=== PATIENT | male | born 1935 | race Caucasian/White ===

== ENCOUNTER 2016-07-13 07:44 | Inpatient (IN) | payer OTHER ==
[~2016-07-13] VITALS: Ht 177.8 cm; Wt 60.6 kg
[2016-07-13] VITALS (41 sets, daily range): BP systolic 50–145; BP diastolic 25–76
--- NOTE | ~2016-07-13 | CON ---
[place], [place] REPORT OF CONSULTATION NAME: TRISTEN WASHBURN UNIT #: [id number] ROOM: [place] [address] DOCTOR: QUINCY CUEVAS MD BIRTHDATE: [birth year] DOS: 07/13/2016 CARDIOLOGY CONSULTATION REASON FOR CONSULTATION: Elevated cardiac enzymes. HISTORY OF PRESENT ILLNESS: This patient is an 80-year-old gentleman was evidently presented for evaluation of his fever. [facility] a [facility] and brought to the Emergency Room for his fever of 101 then this morning his temperature was 103.1 in the Emergency Room. He did have some nausea and decreased appetite on day before admission. He is admitted to the hospital and due to his slightly elevated cardiac enzymes Cardiology was consulted. Most of the history was obtained from the chart and the Emergency Room record due to patient's mental status, but he denies any chest pain or shortness of breath, no palpitations, no dizziness, and no syncope. He denies any headache or blurred vision, no hematuria, dysuria, no constipation. REVIEW OF SYSTEMS: Review of the 8 systems negative except as described in the history of present complaint. PAST MEDICAL HISTORY: 1. History of diastolic heart failure. 2. Short gut syndrome. 3. Anemia. 4. Peptic ulcer disease. 5. B12 deficiency. 6. Fracture of L1 vertebra. 7. Ulcerative colitis. PAST SURGICAL HISTORY: 1. History of ileostomy, history of knee surgery. 2. MediPort placement. SOCIAL HISTORY: The patient does not smoke or drink. No illicit drug abuse. Currently lives at [facility]. FAMILY HISTORY: Noncontributory. Father at the age of 104. Mother at the age of 94. ALLERGIES: THE PATIENT IS ALLERGIC TO LEVAQUIN AND AVELOX. CURRENT MEDICATIONS: Reviewed. PHYSICAL EXAMINATION: VITAL SIGNS: At the time of examination, the blood pressure was 108/55, pulse 77, respiratory rate 18. GENERAL: Alert, comfortable, in no acute distress, appears to be tired. HEENT: Pupils are round and equal. No jaundice. Tongue was moist and pharynx [place], [place] REPORT OF CONSULTATION NAME: TRISTEN WASHBURN UNIT #: [id number] ROOM: [place] [address] DOCTOR: QUINCY CUEVAS MD BIRTHDATE: [birth year] was clear. NECK: Supple, no distended neck veins, no carotid bruit. CHEST: Chest wall symmetrical. LUNGS: Clear to auscultation bilaterally, slightly diminished at bases. HEART: Regular rhythm, no S3, grade 1/6 systolic murmur. ABDOMEN: Bowel sounds normal, nontender. EXTREMITIES: Showed trace edema. SKIN: Warmer and no cyanosis, no clubbing. Distal pulses palpable. NEUROLOGIC: The patient is alert, oriented. No focal neurologic deficit. RECTAL: Deferred. GENITOURINARY: Deferred. REVIEW OF THE DIAGNOSTIC TESTS: EKG shows sinus rhythm, sinus tachycardia with ventricular ectopy, IVCD. LABORATORY DATA: His labs reviewed. CPK was 25. CK-MB 0.9. Troponin 0.019, the next troponin was 0.054. Hemoglobin 9.9 and platelets 120,000. Creatinine 3.0. IMPRESSION: 1. Hypotensive shock. 2. Borderline elevation of troponin. 3. Acute renal failure. 4. Possible sepsis. 5. Anemia. 6. Thrombocytopenia. RECOMMENDATIONS: 1. Continue fluids and inotropic support. 2. Weaning gradually the inotropic support and once the blood pressure stable resume low-dose beta blockers and continue his aspirin. 3. Check 2D echo for LV function and valvular function. 4. His borderline elevation of troponin due to his hypotension and renal failure. 5. Due to his multiple comorbid conditions, I would recommend just conservative medical therapy. 6. There is no family at bedside at the time of my examination. 7. Overall prognosis was poor. [place], [place] REPORT OF CONSULTATION NAME: TRISTEN WASHBURN UNIT #: [id number] ROOM: [place] [address] DOCTOR: QUINCY CUEVAS MD BIRTHDATE: [birth year] QUINCY CUEVAS MD CM:CONSTR:REPORT OF CONSULTATION 0814 07/14/16 1047 interface
--- NOTE | ~2016-07-13 | PR ---
[place], [place] PROGRESS NOTE NAME: TRISTEN WASHBURN UNIT #: [id number] ROOM: [place] [address] DOCTOR: MASON LO,DONNYCONCHITA BIRTHDATE: [birth year] DOS: 07/14/2016 CARDIOLOGY FOLLOWUP VISIT NOTE REASON FOR VISIT: Elevated cardiac enzymes and low blood pressure. SUBJECTIVE: The patient is more alert today. Denies any chest pain, somewhat confused. His is at bedside. Denies any chest pain or shortness of breath. No fever. No orthopnea. Today, he had a stent put in for obstruction. REVIEW OF SYSTEMS: Review of the 8 systems negative except as mentioned above. PHYSICAL EXAMINATION: VITAL SIGNS: Blood pressure 115/61, pulse 60, 20. GENERAL: Alert, comfortable, in no acute distress. HEAD AND NECK: Pupils are round and equal. No jaundice. Tongue was moist and pharynx was clear. NECK: Supple. No distended neck veins. No carotid bruit. CHEST: Nontender, symmetrical. LUNGS: Fair air entry, few scattered rhonchi. HEART: Regular rhythm, no S3. Grade 1/6 systolic murmur. ABDOMEN: Bowel sounds normal. EXTREMITIES: Showed trace edema. SKIN: Warm and dry. No cyanosis, no clubbing. REVIEW OF THE DIAGNOSTIC TESTS: His labs and rhythm strips reviewed. His hemoglobin 9.4, creatinine 2.88, magnesium 1.4. CPK 280, MB 7.5. Troponin 0.125 IMPRESSION: 1. Ied-PU-dkloimo-elevation myocardial infarction, due to secondary ischemia and type 2 pxx-WQ-tscjwyr-elevation myocardial infarction. 2. Hypotensive shock, resolved. 3. Anemia. 4. Acute renal failure. 5. Gallstones. 6. Hypomagnesemia. RECOMMENDATIONS: 1. The blood pressure and heart rate are stable. He denies any chest pain. 2. Conservative medical therapy due to his multiple comorbidities. 3. Start aspirin 81 mg once daily and low-dose beta blockers as his blood pressure tolerates. 4. His magnesium is being replaced today. 5. Discussed with his and all questions were answered. [place], [place] PROGRESS NOTE NAME: TRISTEN WASHBURN UNIT #: [id number] ROOM: [place] [address] DOCTOR: QUINCY CUEVAS MD BIRTHDATE: [birth year] QUINCY CUEVAS MD CM:JAILYN [id number] QUINCY CUEVAS MD 07/15/16 0523 interface
--- NOTE | ~2016-07-13 | O ---
[place], [place] OPERATIVE NOTE [id number] UNIT #: [id number] ROOM: [place] [address] DOCTOR: AJIT CUMMINGS MD BIRTHDATE: [birth year] DOS: PREOPERATIVE DIAGNOSES: Urosepsis with left mid ureteral calculus with obstructive uropathy. Normal right collecting system with no evidence of ureteral obstruction. PROCEDURE: Cystoscopy, bilateral retrograde pyelogram, placement of the left ureteral stent. DESCRIPTION OF PROCEDURE: After obtaining satisfactory general anesthesia, the patient was placed in lithotomy position. Genitals prepped and draped in sterile manner. A 21 ACMI scope was placed in the bladder. Left orifice was then identified, the contrast injected, which showed a complete obstruction at the level of the mid ureter. However, I was able to pass the size 0.35 guidewire, which was negotiated past the obstruction into upper collecting system. I then placed a size 26-[place] ureteral stent over the guidewire. The guidewire was removed. Stent was seen very well pigtailing in the bladder and in the kidney. The right retrograde pyelogram was then performed in the usual fashion. There was no obstruction noted. The patient tolerated the procedure very well. He was then recovered from anesthesia and transferred to recovery room in satisfactory condition. AJIT CUMMINGS MD CM:OPRECORD:OPERATIVE NOTE [id number] RODNEY ANN MD 07/14/16 0915 interface
--- NOTE | ~2016-07-13 | CON ---
[place], [place] REPORT OF CONSULTATION [id number] UNIT #: [id number] ROOM: [place] [address] DOCTOR: AJIT CUMMINGS MD BIRTHDATE: [birth year] DOS: 07/13/2016 HISTORY OF PRESENT ILLNESS: The patient is an 80-year-old gentleman admitted under Dr. Dobbs's service, seen at her request. The patient was admitted this morning with a high fever, hypotension, nausea and vomiting and admitted to the ICU, the patient has been on with IV fluids and on the Levophed drip to maintain his blood pressure. CT scan was obtained, which showed multiple bilateral renal as well as left obstructing ureteral calculus with hydronephrosis. PAST MEDICAL HISTORY: Most recently about a month ago, the patient was at [facility] with left flank pain, left abdominal pain, and had left ureteral stent placement. Apparently, the patient had the procedure for the left ureteral calculus and then the stent was removed about 2 weeks ago according to the patient. PHYSICAL EXAMINATION: GENERAL: The patient is very well, alert, well orientated, not in any distress; however, states that he has got a left lower back pain, which gets relieved by change of position. ABDOMEN: Soft, nontender. He has some tenderness in the left midline in the lower back, but there does not appear to be any tenderness in the left flank. He has a left colostomy. GENITOURINARY: Genitals normal with a Bhagat catheter at present. Digital examination deferred at this time. LABORATORY DATA: The CT scan reviewed that shows multiple small nonobstructing calculi bilaterally in both kidneys with a bilateral hydronephrosis, more prominent on the left with a left hydroureter, with a stone size approximately 1 cm in greatest diameter at about L3-L4 level. He also has a right hydronephrosis, but I cannot appreciate the stone if there is any in the left distal or mid ureter. There is no ureteral stranding or there is no perinephric stranding suggestive of an acute obstruction. I also reviewed his renal ultrasound, which was performed in 03/2016 that shows there was a single large stone in the left renal pelvis with a very minimal hydronephrosis. Apparently, the same stone which has been present and now it has dropped in the mid ureteral area. ASSESSMENT: Left ureter with ureteral obstruction and a possible urosepsis. PLAN: Since the patient is stable at this time hemodynamically, although on a Levophed, I will take the patient to [facility] first thing in the morning tomorrow to place the ureteral calculus; however, if the patient takes any turn for the worst, we will put the stent in tonight. I discussed the case with the patient's as well as Dr. Dobbs's and has gotten the consent for the procedure, and we will place the ureteral stent in the morning. At the same time, I will also do a right retrograde pyelogram and if it shows ureteral obstruction, I will place stent in the right ureter as well. [place], [place] REPORT OF CONSULTATION NAME: TRISTEN WASHBURN [place] UNIT #: [id number] ROOM: [place] [address] DOCTOR: AJIT CUMMINGS MD BIRTHDATE: [birth year] AJIT CUMMINGS MD CM:CONSTR:REPORT OF CONSULTATION 39 07/14/16 0308 interface
--- NOTE | ~2016-07-13 | PR ---
[place], [place] PROGRESS NOTE NAME: TRISTEN WASHBURN UNIT #: [id number] ROOM: [place] [address] DOCTOR: QUINCY CUEVAS MD BIRTHDATE: [birth year] DOS: 07/15/2016 CARDIOLOGY FOLLOWUP NOTE REASON FOR VISIT: NSTEMI and hypertension. HISTORY OF PRESENT ILLNESS: The patient is more alert. Denies any chest pain or shortness of breath. No fever or chills. He denies any dizziness or orthopnea. No edema, no cough, hemoptysis, no nausea, vomiting, diarrhea. No headaches. REVIEW OF SYSTEMS: Eight systems negative except as mentioned above. RHYTHM STRIPS: The patient was in sinus rhythm. PHYSICAL EXAMINATION: VITAL SIGNS: Blood pressure 112/67, pulse 79, respiratory rate 15. GENERAL: Alert, no acute distress. HEENT: Pupils are round and equal. No jaundice. Tongue was moist. NECK: Supple. No distended neck veins. No carotid bruit. CHEST: Nontender. LUNGS: Few scattered rhonchi, diminished at bases. HEART: Regular rhythm, no S3. Grade 1/6 systolic murmur. EXTREMITIES: Showed trace edema. Distal pulses are palpable. ABDOMEN: Bowel sounds normal. ASSESSMENT: 1. Non-ST elevation myocardial infarction due to demand ischemia. The patient is chest pain free. 2. Hypotensive shock, resolved. 3. Acute renal failure. RECOMMENDATIONS: 1. Continue aspirin, beta blockers. 2. Adjust medications based on his blood pressures and heart rates. 3. There is no family at bedside. 4. Cardiology will see as needed. [place], [place] PROGRESS NOTE NAME: TRISTEN WASHBURN UNIT #: [id number] ROOM: [place] [address] DOCTOR: QUINCY CUEVAS MD BIRTHDATE: [birth year] QUINCY CUEVAS MD CM:PNTRANS [id number] QUINCY CUEVAS MD 07/15/16 1704 interface
[~2016-07-13 07:44] MED LIST: ALDACTONE25 M1 PO; AMOXICILLIN500 M2 PO; AQUAPHOR1 OI1 TP; AUGMENTIN 875875 MG PO; B-12500 MC1 PO; BACTRIM DS 8001 TA1 PO; BISAC-EVAC10 MG RC; CALCIUM + D 6001 TA1 PO; CALCIUM 500 +1 EAC3 PO; CENTRUM SILVER1 EACH PO; CHOLESTYRAMINE P4 GM PO; CHOLESTYRAMINE1 PO1; CLEOCIN PH600 MG/50 IV; COLACE100 MG PO; DELTASONE20 M1 PO; DOXYCYCLINE100 M3 PO; DRY EYE OMEGA1 EACH PO; ELITE MAGNESIUM1 TAB PO; FISH OIL500 M1 PO; FLOMAX0.4 MG PO; FLONASE0.05 MG/AC NS; FLUDROCORTISON0.1 MG PO; Ferrex 150150 MG PO; HYDROCODONE BIT1 T11 PO; IRON90 MG PO; KEPPRA XR500 MG PO; KEPPRA500 MG PO; KLOR-CON 1010 ME1 PO; LASIX20 MG PO; LASIX40 MG PO; LINEZOLID-600 MG/300 IV; MAGNESIUM OXID400 MG PO; MAGNESIUM200 MG PO; MAGNESIUM400 M1 PO; MAGNESIUM400 MG PO; MERREM IV500 MG IV; MILK OF MAGNESI1 TAB PO; NATURE'S BLEND F1 MG PO; NORCO 325 MG-51 TAB PO; NYSTATIN100000 U/M PO; OCTREOTIDE 50 MCG/ML SC; OCTREOTIDE SC; OMEPRAZOLE40 MG PO; OXYCODONE AND A1 TA9 PO; Oscal,Oyster S500 MG PO; PANTOPRAZOLE SO40 MG PO; PERCOCET 325 MG1 TA7 PO; PREDNISONE10 MG PO; PREDNISONE5 MG PO; PRESERVISION A1 EAC1 PO; PRESERVISION1 SGL PO; QUESTRAN LIGHT210 GM PO; QUESTRAN LIGHT4 GM PO; SANTYL250 U/GM T; SUPER B-50 COM1 EAC1 PO; TYLENOL W/CODEI1 TA4 PO; TYLENOL WITH CO1 TA1 PO; TYLENOL325 M2 PO; ULORIC40 MG PO; VITAMIN B12-FO1 EACH PO; VITAMIN B1250 MCG PO; VITAMIN D-32000 UNI1 PO; VITAMIN D22000 UNIT PO; VITAMIN D32000 UNIT PO; VITAMIN D50000 I3 PO; Zofran4 MG PO
[2016-07-13 08:04] LABS: HEMATOCRIT 30.5 % (42.0-52.0); HEMOGLOBIN 9.9 g/dl (14.0-18.0); MEAN CELL VOLUME 92.4 fl (80.0-94.0); MEAN CORPUSCULAR HGB CONC 32.5 g/dl (33.0-37.0); MEAN PLATELET VOLUME 10.6 fl (9.6-12.3); PLATELET COUNT AUTOMATED 120 10*3/uL (130-400); RED CELL DISTRI WIDTH 14.9 % (0-14.5); WHITE BLOOD COUNT 8.7 10*3/uL (4.8-10.8)
[2016-07-13 08:12] LABS: INTERNATIONAL NORM RATIO 1.6 (2.0-3.5); PROTHROMBIN TIME 17.1 SECONDS (9.0-12.4)
[2016-07-13 08:22] LABS: ALBUMIN 2.9 gm/dl (3.1-4.5); BILIRUBIN, TOTAL 0.9 mg/dl (0.2-1.0); CKMB 0.9 ng/ml (0.5-3.6); MAGNESIUM 1.5 mg/dL (1.5-2.1); POTASSIUM 4.2 mmol/L (3.5-5.1); TOTAL PROTEIN 5.5 gm/dL (6.4-8.2); TROPONIN I 0.019 ng/ml (<0.045)
[2016-07-13 08:24] LABS: ACANTHOCYTES MODERATE; LYMPHOCYTE # 0.2 10*3/uL (1.3-4.4); NEUTROPHIL # 8.5 10*3/uL (2.3-7.9); NEUTROPHILS 98 % (47-73); PLATELET SUFFICIENCY LOW (NORMAL); SCHISTOCYTES FEW; TOTAL CELLS COUNTED 100 #CELLS
[2016-07-13 10:01] LABS: LA>2 REFLEX 2 HR DRAW NOW
[2016-07-13 10:16] LABS: LA>2 RFLX FOLLOW UP AT 2 HRS 2.8 mmol/L (0.4-2.0)
[2016-07-13 11:20] LABS: BILIRUBIN NEGATIVE (NEGATIVE); BLOOD 2+ (NEGATIVE); CLARITY SL CLOUDY (CLEAR); COLOR YELLOW (YELLOW); GLUCOSE NEGATIVE (NEGATIVE); KETONE NEGATIVE (NEGATIVE); LEUKO ESTERASE 1+ (NEGATIVE); NITRITE NEGATIVE (NEGATIVE); PROTEIN NEGATIVE (NEGATIVE); UROBILINOGEN 0.2 E.U./dl (0.2-1.0)
[2016-07-13 11:30] LABS: BACTERIA TRACE
[2016-07-13 11:31] LABS: URINE REFLEX COMMENT YES (NO)
[2016-07-13 12:09] LABS: LA>2 REFLEX 4 HR DRAW NOW
[2016-07-13 12:12] LABS: CKMB 1.1 ng/ml (0.5-3.6)
[2016-07-13 12:20] LABS: TROPONIN I 0.054 ng/ml (<0.045)
[2016-07-13] MEDS ORDERED: VISTARIL25 M2 PO (13:30)
[2016-07-13] MEDS ORDERED: PYRIDIUM200 M1 PO (13:33)
[2016-07-13] MEDS ORDERED: TRAMADOL HCL50 MG PO (13:34)
[2016-07-13] MEDS ORDERED: ZANTAC 150150 MG PO (13:36)
[2016-07-14] VITALS (84 sets, daily range): BP systolic 70–149; BP diastolic 26–104
[2016-07-14 00:59] LABS: CKMB 7.5 ng/ml (0.5-3.6); TROPONIN I 0.125 ng/ml (<0.045)
[2016-07-14 06:07] LABS: ALBUMIN 2.2 gm/dl (3.1-4.5); BILIRUBIN, TOTAL 0.7 mg/dl (0.2-1.0); MAGNESIUM 1.4 mg/dL (1.5-2.1); PHOSPHOROUS 2.8 mg/dL (2.5-4.9); TOTAL PROTEIN 4.7 gm/dL (6.4-8.2)
[2016-07-14 06:10] LABS: HEMATOCRIT 29.4 % (42.0-52.0); HEMOGLOBIN 9.4 g/dl (14.0-18.0); MEAN CELL VOLUME 94.2 fl (80.0-94.0); MEAN CORPUSCULAR HGB 30.1 pg (27.0-31.0); MEAN PLATELET VOLUME 11.6 fl (9.6-12.3); RED BLOOD COUNT 3.12 10*6/uL (4.50-5.90); RED CELL DISTRI WIDTH 15.1 % (0-14.5); WHITE BLOOD COUNT 22.3 10*3/uL (4.8-10.8)
[2016-07-14 06:28] LABS: PLATELET COUNT AUTOMATED 163 10*3/uL (130-400)
[2016-07-14 06:37] LABS: INTERNATIONAL NORM RATIO 1.6 (2.0-3.5)
[2016-07-14 07:14] LABS: ACANTHOCYTES FEW; LYMPHOCYTE # 1.1 10*3/uL (1.3-4.4); METAMYELOCYTES 1 % (0-0); MONOCYTE # 0.2 10*3/uL (0.1-1.0); NEUTROPHIL # 20.7 10*3/uL (2.3-7.9); NEUTROPHILS 93 % (47-73); PLATELET SUFFICIENCY NORMAL (NORMAL); TOTAL CELLS COUNTED 100 #CELLS
[2016-07-15] VITALS (85 sets, daily range): BP systolic 94–152; BP diastolic 38–88
[2016-07-15 05:59] LABS: MAGNESIUM 1.8 mg/dL (1.5-2.1); PHOSPHOROUS 2.5 mg/dL (2.5-4.9); POTASSIUM 3.4 mmol/L (3.5-5.1)
[2016-07-15] MEDS ORDERED: DUONEB 3 MG/3 ML3 M1 NEB (19:17)
[2016-07-15] MEDS ORDERED: ASPIRIN ADULT L81 M2 PO (19:17)
[2016-07-15] MEDS ORDERED: ENOXAPARIN30 MG/0.2 SC (19:17)
[2016-07-15] MEDS ORDERED: VANCOMYCIN HCL N1 GM IV (19:17)
[2016-07-15] MEDS ORDERED: ACETAMINOPHEN-H1 TA2 PO (19:17)
[2016-07-15] MEDS ORDERED: NOREPINEPHRINE IV (19:17)
[2016-07-15] MEDS ORDERED: AZITHROMYCIN500 M1 IV (19:17)
[2016-07-15] MEDS ORDERED: MERREM IV1 GM IV (19:17)
== END 2016-07-15 21:42 | disposition short-term general hospital (02) | DRG 871 ==
LOC: ED 07:44 → ICCU 10:45 → EDHOLD 10:45 → 4E 10:57 → ICCU 12:27
PROVIDERS: Emergency Medicine; Hospitalist; Internal Medicine Nephrology
PROC: BT141ZZ Fluoroscopy of Kidneys, Ureters and Bladder using Low Osmolar Contrast (ICD-10-PCS; principal; 2016-07-14)
PROC: 0T778DZ Dilation of Left Ureter with Intraluminal Device, Via Natural or Artificial Opening Endoscopic (ICD-10-PCS; principal; 2016-07-14)
DX: A41.9 Sepsis, unspecified organism (principal); R65.21 Severe sepsis with septic shock; N17.0 Acute kidney failure with tubular necrosis; I21.4 Non-ST elevation (NSTEMI) myocardial infarction; E44.0 Moderate protein-calorie malnutrition; K80.00 Calculus of gallbladder with acute cholecystitis without obstruction; J18.9 Pneumonia, unspecified organism; K91.2 Postsurgical malabsorption, not elsewhere classified; D69.6 Thrombocytopenia, unspecified; N39.0 Urinary tract infection, site not specified; K51.919 Ulcerative colitis, unspecified with unspecified complications; N13.2 Hydronephrosis with renal and ureteral calculous obstruction; Z68.1 Body mass index [BMI] 19.9 or less, adult; E86.0 Dehydration; E83.51 Hypocalcemia; E55.9 Vitamin D deficiency, unspecified; I50.9 Heart failure, unspecified; E83.42 Hypomagnesemia; D53.9 Nutritional anemia, unspecified; Z96.659 Presence of unspecified artificial knee joint; N18.3 Chronic kidney disease, stage 3 (moderate); Z90.49 Acquired absence of other specified parts of digestive tract; Z82.49 Family history of ischemic heart disease and other diseases of the circulatory system; Z88.1 Allergy status to other antibiotic agents; Z79.1 Long term (current) use of non-steroidal anti-inflammatories (NSAID); Z79.899 Other long term (current) drug therapy